=== PATIENT | male | born 1980 | race Two or more races ===

== ENCOUNTER 2020-07-30 14:21 | Inpatient (IN) | payer MEDICAID, OTHER ==
[~2020-07-30] VITALS: Ht 180.3 cm; Wt 138.0 kg
[2020-07-30] MEDS ORDERED: CHOLECALCIFEROL (VITD3) 2,000 UNIT CAP/TAB PO ONE (14:45)
[2020-07-30] MEDS ORDERED: ZINC SULFATE 220mg CAP or TAB PO ONE (14:45)
[2020-07-30] MEDS ORDERED: AZITHROMYCIN 500MG/ 250ML 250 ML IV ONE (14:45)
[2020-07-30] MEDS ORDERED: ASCORBIC ACID 500 MG TAB PO ONE (14:45)
[2020-07-30] MEDS ORDERED: REMDESIVIR PER PHARMACY 0 ML IV SCH (14:45)
[2020-07-30] MEDS ORDERED: methylPREDNISolone SOD SUCC 125 MG/2 ML VL IV ONE (14:45)
[2020-07-30 15:22] LABS: Basophils # (auto) 0 10 ^3/uL (0-0.2); Eosinophils # (auto) 0.1 10 ^3/uL (0-0.8); Lymphocytes # (auto) 0.8 10 ^3/uL (0.4-5.4); Neutrophils # (auto) 7.7 10 ^3/uL (1.6-8.6)
[2020-07-30 15:23] LABS: Basophils % (auto) 0.2 % (0.0-2.0); Eosinophils % (auto) 0.8 % (0.0-7.0); Hematocrit 45.1 % (41.0-53.0); Hemoglobin 15.8 g/dL (13.5-17.5); Lymphocytes % (auto) 8.5 % (10.0-50.0); Mean Corpuscular Hemoglobin 32.7 pg (28.0-32.0); Mean Corpuscular Hgb Conc. 35.1 g/dL (32.0-36.0); Mean Corpuscular Volume 93.1 fL (80.0-100.0); Monocytes % (auto) 10.9 % (0.0-12.0); Neutrophils % (auto) 79.6 % (37.0-80.0); Nucleated Red Blood Cells % 0.1 %; Platelet Count (auto) 594 10^3/uL (140-450); Red Blood Cells 4.84 10^6/uL (4.5-5.90); Red Cell Distribution Width 14.6 % (11.8-14.3); White Blood Cell 9.6 10^3/uL (4.4-10.8)
[2020-07-30 15:33] LABS: Albumin 2.9 g/dL (3.4-5.0); Calcium 9.5 mg/dL (8.5-10.1); Magnesium 2.7 mg/dL (1.6-2.6); Potassium 3.5 mmol/L (3.5-5.1)
[2020-07-30 15:43] LABS: BUN/Creatinine Ratio 10.8; Bilirubin, Total 0.8 mg/dL (0.2-1.0); CRP High Sensitivity 14.3 mg/dL (< 0.3); Total Protein 8.9 g/dL (6.4-8.2)
[2020-07-30 15:45] LABS: Lactic Acid w/Reflex 2.8 mmol/L (0.4-2.0)
[2020-07-30] MEDS ORDERED: MORPHINE SULF INJ 2 MG/ML SYRINGE 1ML IV PRN (16:30)
[2020-07-30] MEDS ORDERED: NITROGLYCERIN 0.4 MG SL TAB SL PRN (16:30)
[2020-07-30 21:19] VITALS: BP 135/97
[2020-07-30] MEDS: ALBUTEROL SULF HFA 90MCG INH 200DOSE IN SCH (22:00)
[2020-07-30 22:41] VITALS: BP 143/92
[2020-07-31 05:00] VITALS: BP 145/89
[2020-07-31] MEDS: ALBUTEROL SULF HFA 90MCG INH 200DOSE IN SCH ×3 (06:00→18:54)
[2020-07-31 06:10] LABS: Hematocrit 43.4 % (41.0-53.0); Hemoglobin 15.2 g/dL (13.5-17.5); Mean Corpuscular Hemoglobin 32.6 pg (28.0-32.0); Mean Corpuscular Volume 93.3 fL (80.0-100.0); Platelet Count (auto) 645 10^3/uL (140-450); Red Blood Cells 4.65 10^6/uL (4.5-5.90); Red Cell Distribution Width 14.8 % (11.8-14.3); White Blood Cell 9.2 10^3/uL (4.4-10.8)
[2020-07-31 06:30] LABS: Albumin 2.6 g/dL (3.4-5.0); Calcium 9.4 mg/dL (8.5-10.1); Potassium 4.2 mmol/L (3.5-5.1)
[2020-07-31 06:33] LABS: BUN/Creatinine Ratio 16.5; Basophils % (manual) 0 (0.0-2.0); Bilirubin, Total 0.7 mg/dL (0.2-1.0); Blast Cells 0; Eosinophils % (manual) 0 (0-7); Promyelocytes % 0; Reactive Lymphocytes 0; Total Protein 8.5 g/dL (6.4-8.2)
[2020-07-31 07:46] LABS: Band Neutrophils % (manual) 2; Lymphocytes % (manual) 13 (10.0-50.0); Metamyelocytes % 1; Monocytes % (manual) 8 (0-12); Myelocytes % 2
[2020-07-31] MEDS: ACETAMINOPHEN 325 MG TAB PO PRN (08:15)
[2020-07-31] MEDS: cefTRIAXone 1GM/50ML D5W 50 ML IV SCH ×2 (08:15→10:00)
[2020-07-31 08:53] VITALS: BP 144/99
[2020-07-31] MEDS: ENOXAPARIN SOD 40 MG/0.4 ML SYRINGE SC SCH (10:04)
[2020-07-31] MEDS: ASCORBIC ACID 1,000 MG TAB PO SCH (10:04)
[2020-07-31] MEDS: PANTOPRAZOLE 40 MG TAB PO SCH (10:04)
[2020-07-31] MEDS: ZINC SULFATE 220mg CAP or TAB PO SCH (10:04)
[2020-07-31] MEDS: DexAMETHasone SOD PHOS 10MG/1ML VIAL INJ IV SCH (10:04)
[2020-07-31] MEDS: CHOLECALCIFEROL (VITD3) 2,000 UNIT CAP/TAB PO SCH (10:04)
[2020-07-31] MEDS: AZITHROMYCIN 500MG/ 250ML 250 ML IV SCH (10:05)
[2020-07-31 12:53] VITALS: BP 113/72
[2020-07-31] MEDS ORDERED: REMDESIVIR 200 MG in NS 210ml LOADING DOSE ADULT IV ONE (15:00)
[2020-07-31 16:51] VITALS: BP 135/82
[2020-07-31 22:00] VITALS: BP 138/75
[2020-08-01 05:00] VITALS: BP 142/88
[2020-08-01] MEDS: ACETAMINOPHEN 325 MG TAB PO PRN ×2 (05:20→20:48)
[2020-08-01] MEDS: ALBUTEROL SULF HFA 90MCG INH 200DOSE IN SCH ×2 (07:03→18:53)
[2020-08-01 07:49] LABS: Potassium 3.8 mmol/L (3.5-5.1)
[2020-08-01 07:55] LABS: Albumin 2.6 g/dL (3.4-5.0); BUN/Creatinine Ratio 23.2; Calcium 9.1 mg/dL (8.5-10.1)
[2020-08-01 07:57] LABS: Bilirubin, Total 0.5 mg/dL (0.2-1.0); Total Protein 7.7 g/dL (6.4-8.2)
[2020-08-01 09:28] VITALS: BP 139/90
[2020-08-01] MEDS: PANTOPRAZOLE 40 MG TAB PO SCH (10:04)
[2020-08-01] MEDS: cefTRIAXone 1GM/50ML D5W 50 ML IV SCH (10:04)
[2020-08-01] MEDS: CHOLECALCIFEROL (VITD3) 2,000 UNIT CAP/TAB PO SCH (10:04)
[2020-08-01] MEDS: ENOXAPARIN SOD 40 MG/0.4 ML SYRINGE SC SCH (10:04)
[2020-08-01] MEDS: ASCORBIC ACID 1,000 MG TAB PO SCH (10:04)
[2020-08-01] MEDS: ZINC SULFATE 220mg CAP or TAB PO SCH (10:04)
[2020-08-01] MEDS: DexAMETHasone SOD PHOS 10MG/1ML VIAL INJ IV SCH (10:04)
[2020-08-01] MEDS: AZITHROMYCIN 500MG/ 250ML 250 ML IV SCH (11:42)
[2020-08-01 11:56] LABS: Hematocrit 42.5 % (41.0-53.0); Hemoglobin 14.2 g/dL (13.5-17.5); Mean Corpuscular Hemoglobin 31.7 pg (28.0-32.0); Mean Corpuscular Hgb Conc. 33.3 g/dL (32.0-36.0); Mean Corpuscular Volume 95.4 fL (80.0-100.0); Red Blood Cells 4.46 10^6/uL (4.5-5.90); Red Cell Distribution Width 15.5 % (11.8-14.3); White Blood Cell 13.4 10^3/uL (4.4-10.8)
[2020-08-01 12:01] LABS: Platelet Count (auto) 770 10^3/uL (140-450)
[2020-08-01 12:02] LABS: Basophils % (manual) 0 (0.0-2.0); Blast Cells 0; Eosinophils % (manual) 0 (0-7); Metamyelocytes % 0; Promyelocytes % 0; Reactive Lymphocytes 0
[2020-08-01 12:25] LABS: Band Neutrophils % (manual) 3; Lymphocytes % (manual) 7 (10.0-50.0); Monocytes % (manual) 10 (0-12); Myelocytes % 1
[2020-08-01 13:00] VITALS: BP 143/97
[2020-08-01] MEDS: REMDESIVIR 100mg 100 MG in SODIUM CHL 0.9% 230 ML IV SCH (15:31)
[2020-08-01 16:53] VITALS: BP 124/85
[2020-08-01 20:00] VITALS: BP 125/75
[2020-08-01 22:00] VITALS: BP 125/75
[2020-08-02] VITALS (7 sets, daily range): BP systolic 103–143; BP diastolic 60–90
[2020-08-02] MEDS: ACETAMINOPHEN 325 MG TAB PO PRN ×3 (05:06→17:50)
[2020-08-02 06:12] LABS: Basophils # (auto) 0 10 ^3/uL (0-0.2); Basophils % (auto) 0.1 % (0.0-2.0); Eosinophils # (auto) 0 10 ^3/uL (0-0.8); Eosinophils % (auto) 0.2 % (0.0-7.0); Hematocrit 41.3 % (41.0-53.0); Hemoglobin 14.5 g/dL (13.5-17.5); Lymphocytes # (auto) 1.2 10 ^3/uL (0.4-5.4); Lymphocytes % (auto) 9.3 % (10.0-50.0); Mean Corpuscular Volume 94.2 fL (80.0-100.0); Monocytes # (auto) 1.2 10 ^3/uL (0-1.3); Monocytes % (auto) 9.3 % (0.0-12.0); Neutrophils # (auto) 10.1 10 ^3/uL (1.6-8.6); Neutrophils % (auto) 81.1 % (37.0-80.0); Nucleated Red Blood Cells % 0.1 %; Platelet Count (auto) 744 10^3/uL (140-450); Red Blood Cells 4.38 10^6/uL (4.5-5.90); Red Cell Distribution Width 14.8 % (11.8-14.3); White Blood Cell 12.5 10^3/uL (4.4-10.8)
[2020-08-02] MEDS: ALBUTEROL SULF HFA 90MCG INH 200DOSE IN SCH ×3 (06:16→18:57)
[2020-08-02 06:29] LABS: Albumin 2.7 g/dL (3.4-5.0); Calcium 9.1 mg/dL (8.5-10.1); Potassium 3.8 mmol/L (3.5-5.1)
[2020-08-02 06:32] LABS: BUN/Creatinine Ratio 22.1; Bilirubin, Total 0.6 mg/dL (0.2-1.0); Total Protein 7.6 g/dL (6.4-8.2)
[2020-08-02] MEDS: ENOXAPARIN SOD 40 MG/0.4 ML SYRINGE SC SCH (10:42)
[2020-08-02] MEDS: DexAMETHasone SOD PHOS 10MG/1ML VIAL INJ IV SCH (10:42)
[2020-08-02] MEDS: cefTRIAXone 1GM/50ML D5W 50 ML IV SCH (10:42)
[2020-08-02] MEDS: PANTOPRAZOLE 40 MG TAB PO SCH (10:43)
[2020-08-02] MEDS: ASCORBIC ACID 1,000 MG TAB PO SCH (10:43)
[2020-08-02] MEDS: ZINC SULFATE 220mg CAP or TAB PO SCH (10:43)
[2020-08-02] MEDS: CHOLECALCIFEROL (VITD3) 2,000 UNIT CAP/TAB PO SCH (10:44)
[2020-08-02] MEDS: AZITHROMYCIN 500MG/ 250ML 250 ML IV SCH (11:41)
[2020-08-02] MEDS: REMDESIVIR 100mg 100 MG in SODIUM CHL 0.9% 230 ML IV SCH (15:07)
[2020-08-03 04:53] VITALS: BP 146/89
[2020-08-03 06:33] LABS: Potassium 4.5 mmol/L (3.5-5.1)
[2020-08-03] MEDS: ALBUTEROL SULF HFA 90MCG INH 200DOSE IN SCH ×2 (06:37→14:13)
[2020-08-03 06:38] LABS: Albumin 2.6 g/dL (3.4-5.0); BUN/Creatinine Ratio 21.3; Bilirubin, Total 0.4 mg/dL (0.2-1.0); Calcium 9.1 mg/dL (8.5-10.1); Total Protein 7.1 g/dL (6.4-8.2)
[2020-08-03 06:47] LABS: Platelet Count (auto) 721 10^3/uL (140-450); Red Blood Cells 4.54 10^6/uL (4.5-5.90); White Blood Cell 9.9 10^3/uL (4.4-10.8)
[2020-08-03 06:49] LABS: Hematocrit 42.6 % (41.0-53.0); Hemoglobin 14.7 g/dL (13.5-17.5); Mean Corpuscular Hemoglobin 32.4 pg (28.0-32.0); Mean Corpuscular Hgb Conc. 34.6 g/dL (32.0-36.0); Mean Corpuscular Volume 93.8 fL (80.0-100.0); Red Cell Distribution Width 15.1 % (11.8-14.3)
[2020-08-03 06:52] LABS: Basophils % (manual) 0 (0.0-2.0); Blast Cells 0; Eosinophils % (manual) 0 (0-7); Metamyelocytes % 0; Promyelocytes % 0; Reactive Lymphocytes 0
[2020-08-03] MEDS: ACETAMINOPHEN 325 MG TAB PO PRN ×2 (07:05→15:53)
[2020-08-03 08:13] LABS: Band Neutrophils % (manual) 4; Lymphocytes % (manual) 16 (10.0-50.0); Monocytes % (manual) 8 (0-12); Myelocytes % 1
[2020-08-03] MEDS: DexAMETHasone SOD PHOS 10MG/1ML VIAL INJ IV SCH (09:45)
[2020-08-03] MEDS: cefTRIAXone 1GM/50ML D5W 50 ML IV SCH (09:45)
[2020-08-03] MEDS: ENOXAPARIN SOD 40 MG/0.4 ML SYRINGE SC SCH (09:45)
[2020-08-03] MEDS: CHOLECALCIFEROL (VITD3) 2,000 UNIT CAP/TAB PO SCH (09:54)
[2020-08-03] MEDS: ZINC SULFATE 220mg CAP or TAB PO SCH (09:54)
[2020-08-03] MEDS: ASCORBIC ACID 1,000 MG TAB PO SCH (09:54)
[2020-08-03] MEDS: PANTOPRAZOLE 40 MG TAB PO SCH (09:54)
[2020-08-03 09:57] VITALS: BP 133/80
[2020-08-03] MEDS: AZITHROMYCIN 500MG/ 250ML 250 ML IV SCH (10:50)
[2020-08-03 12:00] VITALS: BP 131/98
[2020-08-03] MEDS: REMDESIVIR 100mg 100 MG in SODIUM CHL 0.9% 230 ML IV SCH (15:00)
[2020-08-03] MEDS ORDERED: DEXA6TAB6 PO (15:50)
[2020-08-03] MEDS ORDERED: ASCO10003 PO (15:50)
[2020-08-03] MEDS ORDERED: CHOL1CAP47 PO (15:50)
[2020-08-03] MEDS ORDERED: AZIT250T9 PO (15:50)
[2020-08-03] MEDS ORDERED: ZINCCAP PO (15:50)
[2020-08-03] MEDS ORDERED: ALBUAER3 IN (15:50)
[2020-08-03 17:05] VITALS: BP 134/87
[2020-08-03 17:39] VITALS: BP 134/87
== END 2020-08-03 18:50 | disposition home health service (06) | DRG 137 ==
LOC: ER 14:21 → TELE 16:22 → TELE-EAST 21:26
PROVIDERS: ADMIT Internal Medicine; ATTEND Internal Medicine
PROC: XW033E5 Introduction of Remdesivir Anti-infective into Peripheral Vein, Percutaneous Approach, New Technology Group 5 (ICD-10-PCS; principal; 2020-07-31)
DX: U07.1 COVID-19 (principal); J12.82 Pneumonia due to coronavirus disease 2019; J96.01 Acute respiratory failure with hypoxia; E66.01 Morbid (severe) obesity due to excess calories; Z68.41 Body mass index [BMI] 40.0-44.9, adult; J98.11 Atelectasis; D47.3 Essential (hemorrhagic) thrombocythemia
CPT/HCPCS: 36415; 36600; 71045; 80053; 82728; 82805; 83605; 83735; 83880; 85007; 85025; 85027; 85379; 86141; 87040; 87426; 93005; 94640; 96365; 96375; G0378; J0696; J1100

== ENCOUNTER 2022-09-13 12:27 | Inpatient (IN) | payer MEDICAID ==
[~2022-09-13] VITALS: Ht 177.8 cm; Wt 134.5 kg
[~2022-09-13 12:27] MED LIST: ALBUAER3 IN; ASCO10003 PO; AZIT250T9 PO; CHOL1CAP47 PO; DEXA6TAB6 PO; ZINCCAP PO
[2022-09-13 13:00] LABS: Urine Bacteria NONE SEEN /hpf (None Seen); Urine Blood Negative /uL (Negative); Urine Mucus FEW (None Seen); Urine Specific Gravity 1.022 (1.001-1.035); Urine WBC 1 /hpf (0 - 3)
[2022-09-13 13:29] LABS: Basophils # (auto) 0.1 10 ^3/uL (0-0.2); Basophils % (auto) 0.8 % (0.0-2.0); Eosinophils # (auto) 0.2 10 ^3/uL (0-0.8); Eosinophils % (auto) 3.6 % (0.0-7.0); Hematocrit 45.7 % (41.0-53.0); Hemoglobin 15.5 g/dL (13.5-17.5); Lymphocytes # (auto) 1.4 10 ^3/uL (0.4-5.4); Lymphocytes % (auto) 21.2 % (10.0-50.0); Mean Corpuscular Hemoglobin 31.5 pg (28.0-32.0); Mean Corpuscular Hgb Conc. 33.8 g/dL (32.0-36.0); Monocytes # (auto) 0.8 10 ^3/uL (0-1.3); Monocytes % (auto) 12.3 % (0.0-12.0); Neutrophils # (auto) 4.2 10 ^3/uL (1.6-8.6); Neutrophils % (auto) 62.1 % (37.0-80.0); Nucleated Red Blood Cells % 0.1 %; Red Blood Cells 4.92 10^6/uL (4.5-5.90); Red Cell Distribution Width 15.4 % (11.8-14.3); White Blood Cell 6.7 10^3/uL (4.4-10.8)
[2022-09-13 13:44] LABS: Cannabinoid Screen, Urine NEGATIVE (NEGATIVE); Opiate Scree,Urine NEGATIVE (NEGATIVE)
[2022-09-13 13:46] LABS: Albumin 3.4 g/dL (3.4-5.0); BUN/Creatinine Ratio 12.2 (10.0-20.0); Calcium 9.3 mg/dL (8.5-10.1); Magnesium 1.9 mg/dL (1.6-2.6); Potassium 4.9 mmol/L (3.5-5.1)
[2022-09-13 13:49] LABS: Bilirubin, Total 0.3 mg/dL (0.2-1.0); Total Protein 7.3 g/dL (6.4-8.2)
[2022-09-13 13:51] LABS: Amphetamine Screen, Urine NEGATIVE (NEGATIVE); Barbiturate Scree,Urine NEGATIVE (NEGATIVE); Benzodiazephine Screen, Urine NEGATIVE (NEGATIVE); Cocaine Screen, Urine NEGATIVE (NEGATIVE); Phencyclidine Screen, Urine NEGATIVE (NEGATIVE)
[2022-09-13] MEDS ORDERED: ASPirin 325 MG TAB PO ONE (16:00)
[2022-09-13] MEDS ORDERED: NITROGLYCERIN 0.4 MG SL TAB SL ONE (16:00)
[2022-09-13] MEDS ORDERED: THIAMINE HCL 100 MG TAB PO ONE (16:00)
[2022-09-13] MEDS ORDERED: SODIUM CHLORIDE 0.9% 1,000 ML IV ONE (16:00)
[2022-09-13] MEDS ORDERED: ACETAMINOPHEN 325 MG TAB PO PRN (21:45)
[2022-09-13] MEDS ORDERED: DOCUSATE SOD 100 MG CAP PO PRN (21:45)
[2022-09-13] MEDS: SODIUM CHLORIDE 0.9% 1,000 ML IV SCH (21:45)
[2022-09-13] MEDS ORDERED: HYDROcodone-ACET 5/325MG TAB PO PRN (21:45)
[2022-09-13] MEDS ORDERED: ONDANSETRON HCL 4 MG/2 ML VIAL IV PRN (21:45)
[2022-09-13] MEDS ORDERED: ALBUTEROL SULF 2.5 MG/0.5ML(0.5%) NEB SOLN NEB PRN (21:45)
[2022-09-13] MEDS: ATORVASTATIN 20 MG TAB PO SCH (22:23)
[2022-09-13] MEDS ORDERED: MORPHINE SULFATE INJ 2 MG/ml SYRG IV PRN (22:30)
[2022-09-13] MEDS ORDERED: NITROGLYCERIN 0.4 MG SL TAB SL PRN (22:30)
[2022-09-14 00:57] VITALS: BP 146/87
[2022-09-14 05:50] LABS: Basophils # (auto) 0.1 10 ^3/uL (0-0.2); Basophils % (auto) 0.7 % (0.0-2.0); Eosinophils # (auto) 0.2 10 ^3/uL (0-0.8); Eosinophils % (auto) 2.3 % (0.0-7.0); Hematocrit 41.3 % (41.0-53.0); Hemoglobin 14.4 g/dL (13.5-17.5); Lymphocytes % (auto) 21.9 % (10.0-50.0); Mean Corpuscular Hemoglobin 32.1 pg (28.0-32.0); Mean Corpuscular Hgb Conc. 34.9 g/dL (32.0-36.0); Monocytes % (auto) 10.6 % (0.0-12.0); Neutrophils # (auto) 5.9 10 ^3/uL (1.6-8.6); Neutrophils % (auto) 64.5 % (37.0-80.0); Nucleated Red Blood Cells % 0.1 %; Red Blood Cells 4.49 10^6/uL (4.5-5.90); Red Cell Distribution Width 15.2 % (11.8-14.3); White Blood Cell 9.2 10^3/uL (4.4-10.8)
[2022-09-14 06:06] LABS: Albumin 3.2 g/dL (3.4-5.0); Calcium 8.3 mg/dL (8.5-10.1); Potassium 4.1 mmol/L (3.5-5.1)
[2022-09-14 06:10] LABS: BUN/Creatinine Ratio 13.5 (10.0-20.0); Bilirubin, Total 0.6 mg/dL (0.2-1.0); Total Protein 6.3 g/dL (6.4-8.2)
[2022-09-14] MEDS: ASPirin 81 mg TAB PO SCH (09:22)
[2022-09-14] MEDS: FAMOTIDINE (10MG/ML) 2ML VL IV SCH (09:23)
[2022-09-14] MEDS: SODIUM CHLORIDE 0.9% 1,000 ML IV SCH (16:49)
[2022-09-14] MEDS ORDERED: BUPR300T28 PO (16:50)
[2022-09-14 17:12] VITALS: BP 150/88
[2022-09-14] MEDS: ATORVASTATIN 20 MG TAB PO SCH (21:38)
[2022-09-14 22:00] VITALS: BP 144/91
[2022-09-15 05:00] VITALS: BP 141/79
[2022-09-15] MEDS: SODIUM CHLORIDE 0.9% 1,000 ML IV SCH (06:39)
[2022-09-15 09:00] VITALS: BP 139/82
[2022-09-15] MEDS: FAMOTIDINE (10MG/ML) 2ML VL IV SCH (10:20)
[2022-09-15] MEDS: ASPirin 81 mg TAB PO SCH (10:20)
[2022-09-15 13:00] VITALS: BP 142/87
[2022-09-15 17:12] VITALS: BP 145/86
== END 2022-09-15 19:30 | disposition home or self-care (01) | DRG 204 ==
LOC: ER 12:27 → TELE 22:17 → TELE-WESTW 09-14 16:20
PROVIDERS: ADMIT Nurse Practitioner Family; ATTEND Internal Medicine
DX: R55 Syncope and collapse (principal); F10.20 Alcohol dependence, uncomplicated; I10 Essential (primary) hypertension; F32.A Depression, unspecified; F41.9 Anxiety disorder, unspecified; Y90.9 Presence of alcohol in blood, level not specified; R07.89 Other chest pain
CPT/HCPCS: 36415; 71045; 80053; 80307; 81001; 83605; 83735; 84484; 85025; 85379; 93005; 96365; G0378; J3490

== ENCOUNTER 2024-01-07 01:35 | Emergency (ER) | payer SELFPAY ==
[~2024-01-07] VITALS: Ht 177.8 cm; Wt 109.0 kg
[~2024-01-07 01:35] MED LIST changes: -ALBUAER3 IN; -AZIT250T9 PO; +BUPR-581 PO; -DEXA6TAB6 PO
[2024-01-07 02:05] LABS: Basophils # (auto) 0 10 ^3/uL (0-0.2); Basophils % (auto) 0.5 % (0.0-2.0); Eosinophils # (auto) 0.1 10 ^3/uL (0-0.8); Eosinophils % (auto) 1.9 % (0.0-7.0); Hematocrit 43.4 % (41.0-53.0); Hemoglobin 14.9 g/dL (13.5-17.5); Lymphocytes # (auto) 1.4 10 ^3/uL (0.4-5.4); Mean Corpuscular Hemoglobin 31.6 pg (28.0-32.0); Mean Corpuscular Hgb Conc. 34.2 g/dL (32.0-36.0); Mean Corpuscular Volume 92.3 fL (80.0-100.0); Monocytes # (auto) 0.7 10 ^3/uL (0-1.3); Monocytes % (auto) 10.7 % (0.0-12.0); Neutrophils # (auto) 4.3 10 ^3/uL (1.6-8.6); Neutrophils % (auto) 64.9 % (37.0-80.0); Nucleated Red Blood Cells % 0.1 %; Platelet Count (auto) 80 10^3/uL (140-450); Red Cell Distribution Width 13.2 % (11.8-14.3); White Blood Cell 6.6 10^3/uL (4.4-10.8)
[2024-01-07 02:25] LABS: Alanine Aminotransferase 37 U/L (7-40); Alkaline Phosphatase 81 U/L (46-116); Anion Gap 5 (5-15); Aspartate Aminotransferase 36 U/L (13-40); BUN/Creatinine Ratio 18.3 (10.0-20.0); Blood Urea Nitrogen 19 mg/dL (9-23); Calcium 9.2 mg/dL (8.7-10.4); Carbon Dioxide 27 mmol/L (20-30); Chloride 104 mmol/L (98-107); Glucose 112 mg/dL (74-106); Potassium 4.2 mmol/L (3.5-5.1); Sodium 136 mmol/L (136-145)
[2024-01-07 02:26] LABS: Albumin 4.1 g/dL (3.2-4.8); Bilirubin, Total 0.8 mg/dL (0.2-1.0); Total Protein 7.2 g/dL (5.7-8.2)
[2024-01-07 02:51] LABS: Urine Bacteria None Seen /hpf (None Seen); Urine WBC None Seen /hpf (0 - 3)
[2024-01-07 02:59] LABS: Urine Blood 1+ /uL (Negative); Urine Clarity Clear (Clear); Urine Color Colorless (Yellow); Urine Protein, UAD Negative (Negative); Urine Specific Gravity 1.003 (1.001-1.035); Urine Urobilinogen Normal (Negative)
[2024-01-07 03:10] LABS: Platelet Estimate Decreased
[2024-01-07 03:11] LABS: Large Platelets FEW
[2024-01-07 05:45] VITALS: BP 144/88; PULSE 88; RESP 18; TEMP 98.1
[2024-01-07] MEDS: ASPirin 81 mg TAB PO ONE (05:50)
[2024-01-07 05:52] VITALS: O2SAT 98
[2024-01-07] MEDS: ASPirin-EC 81 mg tab PO ONE (05:54)
[2024-01-08] MEDS ORDERED: PANT40T PO (14:25)
== END 2024-01-07 05:50 | disposition home or self-care (01) ==
LOC: ER 01:35
DX: R07.89 Other chest pain (principal); F10.10 Alcohol abuse, uncomplicated; F12.90 Cannabis use, unspecified, uncomplicated; Z79.899 Other long term (current) drug therapy
CPT/HCPCS: 36415; 71045; 80053; 81001; 84484; 85025; 93005

== ENCOUNTER 2024-01-07 07:48 | Inpatient (IN) | payer MEDICAID ==
[~2024-01-07] VITALS: Ht 177.8 cm; Wt 109.0 kg
[2024-01-07 08:35] LABS: Basophils # (auto) 0 10 ^3/uL (0-0.2); Basophils % (auto) 0.5 % (0.0-2.0); Eosinophils # (auto) 0.1 10 ^3/uL (0-0.8); Eosinophils % (auto) 1.1 % (0.0-7.0); Hematocrit 42.3 % (41.0-53.0); Hemoglobin 14.6 g/dL (13.5-17.5); Lymphocytes # (auto) 1.5 10 ^3/uL (0.4-5.4); Lymphocytes % (auto) 20.7 % (10.0-50.0); Mean Corpuscular Hgb Conc. 34.5 g/dL (32.0-36.0); Mean Corpuscular Volume 92.6 fL (80.0-100.0); Monocytes # (auto) 0.7 10 ^3/uL (0-1.3); Monocytes % (auto) 9.8 % (0.0-12.0); Neutrophils % (auto) 67.9 % (37.0-80.0); Nucleated Red Blood Cells % 0.1 %; Platelet Count (auto) 85 10^3/uL (140-450); Red Blood Cells 4.56 10^6/uL (4.5-5.90); Red Cell Distribution Width 13.4 % (11.8-14.3); White Blood Cell 7.3 10^3/uL (4.4-10.8)
[2024-01-07 08:41] LABS: Alanine Aminotransferase 36 U/L (7-40); Albumin 4.3 g/dL (3.2-4.8); Alkaline Phosphatase 68 U/L (46-116); Anion Gap 4 (5-15); Aspartate Aminotransferase 32 U/L (13-40); BUN/Creatinine Ratio 16.9 (10.0-20.0); Blood Urea Nitrogen 15 mg/dL (9-23); Calcium 9.6 mg/dL (8.7-10.4); Carbon Dioxide 27 mmol/L (20-30); Chloride 104 mmol/L (98-107); Glucose 99 mg/dL (74-106); Potassium 3.9 mmol/L (3.5-5.1); Sodium 135 mmol/L (136-145)
[2024-01-07 08:42] LABS: Bilirubin, Total 1.1 mg/dL (0.2-1.0); Total Protein 7.2 g/dL (5.7-8.2)
[2024-01-07 08:44] LABS: INR 1.03 (0.9-1.15); Partial Thromboplastin Time 28.4 SEC (24.5-34.5); Prothrombin Time 10.9 sec (9.3-11.8)
[2024-01-07] MEDS: SODIUM CHLORIDE 0.9% 1,000 ML IV ONE (09:11)
[2024-01-07] MEDS: ONDANSETRON HCL 4 MG/2 ML VIAL IV ONE (09:23)
[2024-01-07] MEDS: FAMOTIDINE (10MG/ML) 2ML VL IV ONE (09:24)
[2024-01-07] MEDS: MORPHINE SULFATE INJ 2 MG/ml SYRG IV ONE (09:25)
[2024-01-07 09:37] VITALS: PULSE 63; RESP 18; O2SAT 97
[2024-01-07 10:22] LABS: Lipase 51 U/L (12-53)
[2024-01-07 11:21] LABS: Urine Bacteria None Seen /hpf (None Seen)
[2024-01-07 11:33] LABS: Urine Blood 1+ /uL (Negative); Urine Clarity Clear (Clear); Urine Color Colorless (Yellow); Urine Protein, UAD Negative (Negative); Urine Specific Gravity 1.003 (1.001-1.035); Urine Urobilinogen Normal (Negative); Urine WBC <1 /hpf (0 - 3)
[2024-01-07] MEDS: NITROGLYCERIN 2% OINT 1GM PKG TD ONE (12:17)
[2024-01-07] MEDS ORDERED: MORPHINE SULFATE INJ 2 MG/ml SYRG IV PRN (12:45)
[2024-01-07] MEDS ORDERED: NITROGLYCERIN 0.4 MG SL TAB SL PRN (12:45)
[2024-01-07] MEDS ORDERED: DOCUSATE SOD 100 MG CAP PO PRN (12:45)
[2024-01-07] MEDS ORDERED: ACETAMINOPHEN 325 MG TAB PO PRN (12:45)
[2024-01-07] MEDS ORDERED: ONDANSETRON HCL 4 MG/2 ML VIAL IV PRN (12:45)
[2024-01-07] MEDS ORDERED: HYDROmorphone HCL 2 MG/ML VL/or syr IV PRN (12:45)
[2024-01-07] MEDS ORDERED: hydrALAZINE HCL 20 MG/ML VL IV PRN (13:00)
[2024-01-07 13:06] LABS: LDL Cholesterol 60 mg/dL (< 100); Triglycerides 127 mg/dL (< 150)
[2024-01-07 13:08] LABS: Cholesterol 138 mg/dL (< 200); HDL Cholesterol 64 mg/dL (40-59)
[2024-01-07 13:18] LABS: Amphetamine Screen, Urine Neg (NEGATIVE); Barbiturate Scree,Urine Neg (NEGATIVE); Benzodiazephine Screen, Urine Neg (NEGATIVE); Cannabinoid Screen, Urine Neg (NEGATIVE); Cocaine Screen, Urine Neg (NEGATIVE); Opiate Scree,Urine Neg (NEGATIVE); Phencyclidine Screen, Urine Neg (NEGATIVE)
[2024-01-07] MEDS: HYDROcodone-ACET 5/325MG TAB PO PRN (13:21)
[2024-01-07 13:25] LABS: Free T4 (Free Thyroxine) 1.25 ng/dL (0.89-1.76)
[2024-01-07] MEDS: SODIUM CHLOR 0.9% PF (SALINE LOCK) 10ML VIAL/SYR IV SCH (13:35)
[2024-01-07 13:40] LABS: Folate (Folic Acid) 25.85 ng/mL (>5.38)
[2024-01-07] MEDS: PANTOPRAZOLE 40 MG TAB PO ONE (16:26)
[2024-01-07 16:45] LABS: Blood Alcohol < 3.0 mg/dL (<10); Magnesium 2.2 mg/dL (1.6-2.6)
[2024-01-07 17:22] VITALS: BP 112/64; PULSE 70; RESP 18; TEMP 98.5; O2SAT 97
[2024-01-07 17:32] VITALS: BP 113/68; PULSE 71; RESP 20; TEMP 97.9; O2SAT 95
[2024-01-07] MEDS: FOLIC ACID 1 MG, MULTIPLE VITAMIN 10 ML, MAGNESIUM SULF SDV 50% 8 MEQ, THIAMINE INJ 100... INJ SCH (18:24)
[2024-01-07 20:00] VITALS: PULSE 68; PULSE 71; RESP 18; O2SAT 98
[2024-01-07 21:00] VITALS: BP 129/80; PULSE 71; RESP 18; TEMP 98.7; O2SAT 98
[2024-01-08] VITALS (7 sets, daily range): BP systolic 119–153; BP diastolic 68–95; PULSE 63–74; RESP 18–20; TEMP 36.8; O2SAT 97–99
[2024-01-08 05:26] LABS: Basophils # (auto) 0 10 ^3/uL (0-0.2); Basophils % (auto) 0.5 % (0.0-2.0); Eosinophils # (auto) 0.1 10 ^3/uL (0-0.8); Eosinophils % (auto) 2.1 % (0.0-7.0); Hematocrit 39.7 % (41.0-53.0); Hemoglobin 13.8 g/dL (13.5-17.5); Lymphocytes # (auto) 1.3 10 ^3/uL (0.4-5.4); Lymphocytes % (auto) 23.4 % (10.0-50.0); Mean Corpuscular Hemoglobin 31.8 pg (28.0-32.0); Mean Corpuscular Hgb Conc. 34.8 g/dL (32.0-36.0); Mean Corpuscular Volume 91.4 fL (80.0-100.0); Monocytes # (auto) 0.7 10 ^3/uL (0-1.3); Monocytes % (auto) 12.7 % (0.0-12.0); Neutrophils # (auto) 3.4 10 ^3/uL (1.6-8.6); Neutrophils % (auto) 61.3 % (37.0-80.0); Nucleated Red Blood Cells % 0.1 %; Platelet Count (auto) 84 10^3/uL (140-450); Red Blood Cells 4.34 10^6/uL (4.5-5.90); Red Cell Distribution Width 13.3 % (11.8-14.3); White Blood Cell 5.6 10^3/uL (4.4-10.8)
[2024-01-08] MEDS: PANTOPRAZOLE 40 MG TAB PO SCH (05:32)
[2024-01-08 05:47] LABS: Alanine Aminotransferase 34 U/L (7-40); Albumin 3.8 g/dL (3.2-4.8); Alkaline Phosphatase 50 U/L (46-116); Anion Gap 4 (5-15); Aspartate Aminotransferase 28 U/L (13-40); BUN/Creatinine Ratio 11.8 (10.0-20.0); Bilirubin, Total 0.8 mg/dL (0.2-1.0); Blood Urea Nitrogen 10 mg/dL (9-23); Carbon Dioxide 28 mmol/L (20-30); Chloride 106 mmol/L (98-107); Glucose 109 mg/dL (74-106); Potassium 4.4 mmol/L (3.5-5.1); Sodium 138 mmol/L (136-145); Total Protein 6.5 g/dL (5.7-8.2)
[2024-01-08] MEDS: ENOXAPARIN SOD 40 MG/0.4 ML SYRINGE SC SCH (09:34)
[2024-01-08] MEDS: BUPROPION HCL PO SCH (09:39)
[2024-01-08] MEDS: ASCORBIC ACID 1000 MG PO SCH (09:39)
[2024-01-08] MEDS: CHOLECALCIFEROL (VITD3) 1,000UNIT=25mCg TAB PO SCH (09:40)
[2024-01-08] MEDS: ZINC SULFATE 220mg CAP or TAB PO SCH (09:40)
[2024-01-08] MEDS ORDERED: ZINC SULFATE 220 MG PO SCH (10:00)
[2024-01-08] MEDS ORDERED: PATIENTS OWN MEDICATION (Cholecalciferol (Vitamin D3 Super Strength) 4,000 UNIT) PO SCH (10:00)
[2024-01-08] MEDS ORDERED: PANT40T PO (14:25)
== END 2024-01-08 17:17 | disposition home or self-care (01) | DRG 241 ==
LOC: ER 07:48 → TELE 12:47 → TELE-WESTW 17:21
PROVIDERS: ADMIT Internal Medicine; ATTEND Internal Medicine
DX: K29.70 Gastritis, unspecified, without bleeding (principal); D69.6 Thrombocytopenia, unspecified; K76.0 Fatty (change of) liver, not elsewhere classified; E66.9 Obesity, unspecified; I16.0 Hypertensive urgency; F41.9 Anxiety disorder, unspecified; K21.9 Gastro-esophageal reflux disease without esophagitis; F10.229 Alcohol dependence with intoxication, unspecified; Z71.41 Alcohol abuse counseling and surveillance of alcoholic; Z68.34 Body mass index [BMI] 34.0-34.9, adult; Y90.9 Presence of alcohol in blood, level not specified
CPT/HCPCS: 36415; 71045; 76705; 80053; 80061; 80307; 80320; 81001; 82607; 82746; 83036; 83690; 83735; 83880; 84439; 84443; 84484; 85025; 85379; 85610; 85730; 93306; 96361; 96374; 96375; G0378; J2405

== ENCOUNTER 2025-03-23 21:33 | Inpatient (IN) | payer MEDICAID, OTHER ==
[~2025-03-23] VITALS: Ht 177.8 cm; Wt 103.3 kg
[~2025-03-23 21:33] MED LIST changes: +PANT40T PO
--- NOTE | 2025-03-23 22:28 | ED.PDOC ---
Psychiatric HPI Comments MERE: HPI: Poor Historian. 45-year-old male accompanied by his mother bedside. History obtained from both. Patient has been binge drinking for the last few months. Mother went to check on him today the house was full of alcohol. As alcoholic intake was few hours ago. Denies any other associated symptoms. Patient has history of depression and anxiety which led to him to binge drink. Denies any particular triggers of his depression and anxiety. Denies any use of drugs. Past Medical History: Anxiety, depression, alcohol abuse Past Surgical History: Denies any No known drug allergies REVIEW OF SYSTEMS: CONSTITUTIONAL: Denies acute: fever, diaphoresis, chills, HEAD: Denies acute: headache, photophobia Eyes: Denies acute: Double vision, vision loss, eye pain, eye discharge. EARS: Denies acute: tinnitus, hearing loss, ear discharge, ear pain, THROAT: Denies acute: sore throat, swelling, difficulty swallowing , pain with swall owing, change in voice. NECK: Denies acute: neck pain, neck swelling, stiff neck. HEART: Denies acute : chest pain, palpitations, LUNGS: Denies acute: SOB, wheezing, cough, hemoptysis ABDOMEN: Denies acute: abdominal pain, Nausea, Vomiting, diarrhea, melena , hematemesis, hematochezia SKIN: Denies acute: rash, redness, lesions, itchiness. EXTREMITIES: Denies acute: calf pain, numbness, tingling, weakness, denies pain in extremity. Denies acute: Low back pain. Neuro: Denies acute: focal neurological deficit, motor or sensory focal neurological deficit, tremors, seizure like activity, confusion, dizziness, change in mental status, loss of bowel or bladder function, cauda equina like symptoms. : Denies acute: dysuria, hematuria, flank pain, increase in urinary frequency. PSYCH: Denies acute: hallucination, suicidal ideation, homicidal ideation. PHYSICAL EXAM: General: ---moderate-----acute distress, awake and alert. Head: normocephalic, atraumatic. No raccoon's eyes, no henriquez sign. Neck: supple, trachea is midline, no swelling. Throat: Normal phonation. Eyes:, no erythema, no purulent discharge, no proptosis, no icterus. Heart: regular tachycardia, no significant murmur appreciated. Lungs: no apparent respiratory distress, Able to speak in full sentences. No wheezing, no rhonchi, no crackles. No stridors Clear to auscultation bilaterally. Abdomen: non tender to palpation, non distended, soft, no guarding, no rebound, + bowel sounds. Neuro: Awake, Alert, oriented to name, self, situation, follows commands GCS=15. Speech is normal. Slight hand tremors. Skin: no petechia, no purpura, no cyanosis, non-pale, not jaundice. Lower extremities: --no - Pitting edema no deformity, no focal swelling, no calf TTP. Makes eye contact. moves all four extremities. Face: no apparent facial droop. Ambulating in the ED independently. ED COURSE: DISCLAIMER: This medical document was created using an electronic medical record system with voice recognition software and computerized dictation system. Although this document has been carefully reviewed, there might still be some phonetic and typographical errors. Occasional wrong-word or "sound-alike" substitutions may have occurred due to the inherent limitations of voice recognition software. These areas are purely typographical due to imperfections of the software programs and do not reflect any compromise in the patient's medical care. Please read the chart carefully and recognize, using context, where these substitutions have occurred. Chief Complaint: ETOH Time Seen by MD: 22:13 Primary Care Provider: unknown Information Source: Patient, Relative (Mother) Mode of Arrival: Ambulatory Past Medical History PAST MEDICAL HISTORY: Denies Surgical History: Denies all surgeries Family History Family History: No family hx of Cancer, No family hx of Heart thad, Family hx of DM Social History Smoker: Non-Smoker Alcohol: Heavy Drugs: Marijuana Lives In: Home Was a procedure done? Was a procedure done?: No Psych Differential Dx OD Differential Dx: Alcohol Abuse, Anxiety, Depression Intoxication Differential Dx: Alcohol Withdraw Syndrome, Delerium Tremens, Hallucinations, Seizures, Anticholinergic Poisoning, CVA, Dehydration, Depressi on, Drug-Induced Psychosis, Electrolyte Imbalance, Encephalitis, Encephalopathy, Hepatitis, Hyperthermia, Intoxication, Medical Noncompliance, Personality Disorder, Schizophrenia, Seizure Disorder, Substance Abuse Disorder, Thiamine Deficiency, Thyrotoxicosis X-Ray, Labs, Meds, VS Vital Signs Date Time Temp Pulse Resp B/P (MAP) Pulse Ox O2 Delivery O2 Flow Rate FiO2 03/23/25 21:36 98.0 127 18 152/110 96 98.0 Lab Test 03/23/25 23:24 03/23/25 22:22 Range/Units Urine Opiates Screen Neg NEGATIVE Urine Fentanyl Screen Neg NEGATIVE Urine Barbiturates Screen Neg NEGATIVE Urine Phencyclidine Screen Neg NEGATIVE Urine Amphetamines Screen Neg NEGATIVE Urine Benzodiazepines Screen Neg NEGATIVE Urine Cocaine Screen Neg NEGATIVE Urine Cannabinoids Screen Neg NEGATIVE White Blood Count 5.7 4.4-10.8 10^3/uL Red Blood Count 5.17 4.5-5.90 10^6/uL Hemoglobin 16.2 13.5-17.5 g/dL Hematocrit 46.0 41.0-53.0 % Mean Corpuscular Volume 89.0 80.0-100.0 fL Mean Corpuscular Hemoglobin 31.3 28.0-32.0 pg Mean Corpuscular Hemoglobin Concent 35.2 32.0-36.0 g/dL Red Cell Distribution Width 13.7 11.8-14.3 % Platelet Count 102 L 140-450 10^3/uL Mean Platelet Volume 7.5 6.9-10.8 fL Neutrophils (%) (Auto) 65.7 37.0-80.0 % Lymphocytes (%) (Auto) 25.2 10.0-50.0 % Monocytes (%) (Auto) 6.0 0.0-12.0 % Eosinophils (%) (Auto) 2.1 0.0-7.0 % Basophils (%) (Auto) 1.0 0.0-2.0 % Neutrophils # (Auto) 3.8 1.6-8.6 10 ^3/uL Lymphocytes # (Auto) 1.4 0.4-5.4 10 ^3/uL Monocytes # (Auto) 0.3 0-1.3 10 ^3/uL Eosinophils # (Auto) 0.1 0-0.8 10 ^3/uL Basophils # (Auto) 0.1 0-0.2 10 ^3/uL Nucleated Red Blood Cells 0.1 % Sodium Level 144 136-145 mmol/L Potassium Level 4.3 3.5-5.1 mmol/L Chloride Level 103 98-107 mmol/L Carbon Dioxide Level 25 20-31 mmol/L Anion Gap 16 H 5-15 Blood Urea Nitrogen 9 9-23 mg/dL Creatinine 0.86 0.700-1.30 mg/dL Glomerular Filtration Rate Calc 110 >90 mL/min BUN/Creatinine Ratio 10.5 10.0-20.0 Serum Glucose 100 74-106 mg/dL Calcium Level 8.8 8.7-10.4 mg/dL Magnesium Level 2.3 1.6-2.6 mg/dL Total Bilirubin 1.0 0.2-1.0 mg/dL Aspartate Amino Transferase (AST) 97 H 13-40 U/L Alanine Aminotransferase (ALT) 56 H 7-40 U/L Alkaline Phosphatase 69 46-116 U/L Total Protein 7.8 5.7-8.2 g/dL Albumin 4.6 3.2-4.8 g/dL Plasma/Serum Blood Alcohol 435.9 *H <10 mg/dL Time of 1ST Reevaluation: 22:28 Reevaluation 1ST: Unchanged Patient Education/Counseling: Diagnosis, Treatment Family Education/Counseling: Diagnosis, Treatment Comments MDM: patient presented with the above HPI.---alcohol withdrawal---workup was initiated. patient was found with the above mentioned diagnosis. the following medications were ordered: please refer to order lists of meds and tests obtained by myself Dr. Burger. Patient ED course and VS have been stabilized. Patient has been reassessed in the ED and remained in a stable condition. Pertinent incidental findings were discussed with the patient and/or family. Patient/family voices understanding and is agreeable with plan. Patient has been observed in the ED adequate length of time to insure improvement/stability. Escalation of care considered: Consideration of escalation to observation or admission Patient was ADMITTED to the medicine team for further evaluation and treatment of their presentation. All the reports of any imaging studies that were ordered by myself were reviewed by myself. Departure 1 Departure Time of Disposition: 00:07 Impression: Primary Impression: Alcohol abuse Additional Impression: Alcohol withdrawal Disposition: ADMITTED INPATIENT Admit to: Tele Condition: Guarded Discharged With: Self Critical Care Note Critical Care Time?: Yes (35 min-critical care time only) I personally scribed for LAMONT BURGER DO ([email or web address]) on 03/23/25 at 22:28. Electronically submitted by Girma Villarreal ([facility]). I personally scribed for LAMONT BURGER DO ([email or web address]) on 03/23/25 at 22:31. Electronically submitted by Girma Villarreal ([facility]). LAMONT BURGER DO Mar 23, 2025 22:28
[2025-03-23 22:58] LABS: Hematocrit 46.0 % (41.0-53.0); Hemoglobin 16.2 g/dL (13.5-17.5); Mean Corpuscular Hemoglobin 31.3 pg (28.0-32.0); Mean Corpuscular Volume 89.0 fL (80.0-100.0); Nucleated Red Blood Cells % 0.1 %
[2025-03-23 23:12] LABS: Albumin 4.6 g/dL (3.2-4.8); Alkaline Phosphatase 69 U/L (46-116); Anion Gap 16 (5-15); BUN/Creatinine Ratio 10.5 (10.0-20.0); Bilirubin, Total 1.0 mg/dL (0.2-1.0); Blood Urea Nitrogen 9 mg/dL (9-23); Calcium 8.8 mg/dL (8.7-10.4); Carbon Dioxide 25 mmol/L (20-31); Chloride 103 mmol/L (98-107); Glucose 100 mg/dL (74-106); Magnesium 2.3 mg/dL (1.6-2.6); Potassium 4.3 mmol/L (3.5-5.1); Sodium 144 mmol/L (136-145); Total Protein 7.8 g/dL (5.7-8.2)
[2025-03-23 23:14] LABS: Alanine Aminotransferase 56 U/L (7-40)
[2025-03-23 23:42] LABS: Amphetamine Screen, Urine Neg (NEGATIVE); Barbiturate Scree,Urine Neg (NEGATIVE); Benzodiazephine Screen, Urine Neg (NEGATIVE); Cocaine Screen, Urine Neg (NEGATIVE)
[2025-03-23 23:43] LABS: Cannabinoid Screen, Urine Neg (NEGATIVE); Opiate Scree,Urine Neg (NEGATIVE); Phencyclidine Screen, Urine Neg (NEGATIVE)
[2025-03-24] VITALS (10 sets, daily range): BP systolic 144–172; BP diastolic 78–96; PULSE 82–105; RESP 14–20; TEMP 97.5–98.4; O2SAT 94–98
[2025-03-24] MEDS: LORazepam 2MG/ML-1ML VIAL IV ONE ×2 (01:15→02:17)
[2025-03-24] MEDS ORDERED: LORazepam 2MG/ML-1ML VIAL IV PRN (01:15)
[2025-03-24] MEDS ORDERED: ONDANSETRON HCL 4 MG/2 ML VIAL IV PRN (01:15)
--- NOTE | 2025-03-24 01:43 | DVHHPRES ---
History of Present Illness Resident Creating Document: CARMEN MARTEL History of Present Illness Patient is a 45-year-old male with past medical history of alcohol abuse, anxiety, and depression, presented to [facility] ED after binge drinking for the past 2 weeks. The patient states his last alcoholic drink was approximately 10 hours ago around 6:00 pm, though he is unsure of the exact amount consumed, describing it as a lot. He denies suicidal or homicidal ideation. The patient is accompanied by his mother and sister, and history is obtained from both. According to the mother, the patient has been binge drinking for the past few months, more than 100 bottles of Tequila. He also reported intermittent sharp chest pain for about 10 years. On evaluation in the ED, patient is afebrile, tachycardic and hypertensive (152/110 mmHg). Visible tremors are noted on exam, and he smells strongly of alcohol. Initial labs show significant serum alcohol 435.9, AST 97 and ALT 57. The patient was placed NPO, started on CIWA protocol and IV fluids. Patient is admitted for further evaluation and management. Past Medical History alcohol abuse, anxiety, depression Past Surgical History: None Family History: None Smoke: No ALCOHOL: heavy Drugs: Marijuana Lives: Alone Review of Systems Review of Systems Eyes: No Pain, No Vision change, No Conjunctivae inflammation, No Eyelid inflammation, No Other, Redness ENT: No Ear pain, No Ear discharge, No Nose pain, No Nose discharge, No Nose congestion, No Mouth pain, No Mouth swelling, No Throat pain, No Throat swelling, No Other Cardiovascular: Chest Pain, No Palpitations, No Orthopnea, No Paroxysmal No Dyspnea, No Edema, No Lt Headedness, No Other Respiratory: No Cough, No Dry, No Shortness of breath, No SOB with exertion, No Wheezing, No Hemoptysis, No Pleuritic Pain, No Sputum, No Other Gastrointestinal: Nausea, Vomiting, No Abdominal Pain, No Diarrhea, No Constipation, No Melena, No Hematochezia, No Other Genitourinary: No Dysuria, No Frequency, No Incontinence, No Hematuria, No Retention, No Other Musculoskeletal: No other, No neck pain, No shoulder pain, No arm pain, No back pain, No hand pain, No leg pain, No foot pain Skin: No Rash, No Lesions, No Jaundice, No Bruising, No Other Allergies: Coded Allergies: NO KNOWN ALLERGIES (Unverified , 07/30/20) Medications Current Medications Medications Dose Ordered Sig/Lexus Route Start Time Stop Time Status Last Admin Dose Admin Ondansetron HCl 4 mg Q4HP PRN IV 03/24/25 01:15 UNV Thiamine HCl 100 mg DAILY IV 03/24/25 10:00 UNV Lorazepam 2 mg Q2H PRN IV 03/24/25 01:15 UNV Exam Vital Signs Vital Signs Date Time Temp Pulse Resp B/P (MAP) Pulse Ox O2 Delivery O2 Flow Rate FiO2 03/24/25 01:17 98.0 105 20 156/93 (114) 96 98.0 Exam General Appearance: Cooperative. Well developed. Well nourished. NAD. Conjunctival injection bilaterally Head Exam: Normal inspection Neck Exam: Normal inspection. Non-tender. Normal alignment Pulmonary/Respiratory: Chest non-tender. Clear bilateral breath sounds, no crackles, no wheezing. Cardiovascular/Chest: Regular rate and rhythm. No murmurs. No JVD. Peripheral Pulses: 2+ Radial (R). 2+ Radial (L). 2+ Pedal (R). 2+ Pedal (L) Abdominal Exam: Normal bowel sounds. Soft. normal abdomen, no visible veins, Nontender. No hepatospenomegaly. No masses Ankle Exam: Negative ankle edema Lower extremities: Negative lower extremity edema Neuro/Mental Status: A&O x4. Coherent. Bilateral upper extremity tremors noted at rest. Thoughts/Psych: Normal thought pattern. Appropriate mood and affect. Good judgement and insight Skin Exam: Normal inspection. Normal color. Warm. Dry Labs/Xrays Labs Test 03/23/25 23:24 03/23/25 22:22 Range/Units Urine Opiates Screen Neg NEGATIVE Urine Fentanyl Screen Neg NEGATIVE Urine Barbiturates Screen Neg NEGATIVE Urine Phencyclidine Screen Neg NEGATIVE Urine Amphetamines Screen Neg NEGATIVE Urine Benzodiazepines Screen Neg NEGATIVE Urine Cocaine Screen Neg NEGATIVE Urine Cannabinoids Screen Neg NEGATIVE White Blood Count 5.7 4.4-10.8 10^3/uL Red Blood Count 5.17 4.5-5.90 10^6/uL Hemoglobin 16.2 13.5-17.5 g/dL Hematocrit 46.0 41.0-53.0 % Mean Corpuscular Volume 89.0 80.0-100.0 fL Mean Corpuscular Hemoglobin 31.3 28.0-32.0 pg Mean Corpuscular Hemoglobin Concent 35.2 32.0-36.0 g/dL Red Cell Distribution Width 13.7 11.8-14.3 % Platelet Count 102 L 140-450 10^3/uL Mean Platelet Volume 7.5 6.9-10.8 fL Neutrophils (%) (Auto) 65.7 37.0-80.0 % Lymphocytes (%) (Auto) 25.2 10.0-50.0 % Monocytes (%) (Auto) 6.0 0.0-12.0 % Eosinophils (%) (Auto) 2.1 0.0-7.0 % Basophils (%) (Auto) 1.0 0.0-2.0 % Neutrophils # (Auto) 3.8 1.6-8.6 10 ^3/uL Lymphocytes # (Auto) 1.4 0.4-5.4 10 ^3/uL Monocytes # (Auto) 0.3 0-1.3 10 ^3/uL Eosinophils # (Auto) 0.1 0-0.8 10 ^3/uL Basophils # (Auto) 0.1 0-0.2 10 ^3/uL Nucleated Red Blood Cells 0.1 % Sodium Level 144 136-145 mmol/L Potassium Level 4.3 3.5-5.1 mmol/L Chloride Level 103 98-107 mmol/L Carbon Dioxide Level 25 20-31 mmol/L Anion Gap 16 H 5-15 Blood Urea Nitrogen 9 9-23 mg/dL Creatinine 0.86 0.700-1.30 mg/dL Glomerular Filtration Rate Calc 110 >90 mL/min BUN/Creatinine Ratio 10.5 10.0-20.0 Serum Glucose 100 74-106 mg/dL Calcium Level 8.8 8.7-10.4 mg/dL Magnesium Level 2.3 1.6-2.6 mg/dL Total Bilirubin 1.0 0.2-1.0 mg/dL Aspartate Amino Transferase (AST) 97 H 13-40 U/L Alanine Aminotransferase (ALT) 56 H 7-40 U/L Alkaline Phosphatase 69 46-116 U/L Total Protein 7.8 5.7-8.2 g/dL Albumin 4.6 3.2-4.8 g/dL Plasma/Serum Blood Alcohol 435.9 *H <10 mg/dL SEPSIS Sepsis Screen Date sepsis recognized/suspect: Mar 23, 2025 Time Sepsis recognized/suspect: 2141 Recent Procedure: No On Antibiotic Therapy: No Respiratory Rate >20: No Heart Rate >90: Yes Temp<36 C (96.8 F) or >38.3 C: No SBP <90 or MAP <65 mmHG: No New Acute Mental Status Change: No Is the patient on CPAP, BIPAP,: No Physician Orders [employer] (03/23/25 ) Electrocardigram (03/23/25 22:15) Admit (03/24/25 01:08) Allergies (03/24/25:08) Code Status (03/24/25:08) Ondansetron Hcl (Zofran) (03/24/25:15) Complete Blood Count (03/24/25 04:00) Comprehensive Metabolic Panel (03/24/25 04:00) Npo (Nothing By Mouth) Diet (03/24/25 Breakfast) Condition: Fair (03/24/25 01:08) Stat Ekg For Chest Pain (03/24/25 01:08) Notify Md Of Changes From Base (03/24/25 01:08) Covered Button Maker For 24 Hours (03/24/25 01:08) Emergency Dysrhythmia Protocol (03/24/25:08) Rhythm Strips Once Every Shift (03/24/25 01:08) Sodium Chloride 0.9% (03/24/25:15) Sodium Chloride 0.9% (03/24/25:15) Urinalysis (03/24/25 01:08) Drug Screen (03/24/25 01:08) Lactic Acid W/ Reflex Order (03/24/25 01:08) Thiamine Inj (03/24/25 10:00) Lorazepam 2mg/Ml Inj (Ativan Inj) (03/24/25 01:15) Etoh Withdrawal Assessment (03/24/25 01:08) Etoh Withdrawal Assessment NOW (03/24/25 01:08) Chest Xray 1 View (03/24/25 01:08) Lorazepam 2mg/Ml Inj (Ativan Inj) (03/24/25 01:15) LIVER (03/24/25 01:08) Vital Signs Date Time Temp Pulse Resp B/P (MAP) Pulse Ox O2 Delivery O2 Flow Rate FiO2 03/24/25 01:17 98.0 105 20 156/93 (114) 96 98.0 03/23/25 21:36 98.0 127 18 152/110 96 98.0 Laboratory Tests Test 03/23/25 22:22 White Blood Count 5.7 10^3/uL (4.4-10.8) Assessment/Plan Assessment/Plan Alcohol intoxication Alcohol withdrawal Possible alcoholic ketoacidosis Intractable non-cardiac chest pain due to above We will continue to monitor the patient in the [facility] until the CIWA score is below 20. Serum alcohol: 435.9 CIWA score: 23 > 24 Lactic acid 4.8 > 4.8 Anion gap: 16 IV NS 1,000 MLS/HR one IV NS 125 MLS/HR one Ativan 2MG IV q2h prn Ativan 1 MG IV once Zofran 4 MG IV q4h prn Thiamine 100 MG IV daily UA and UDS Chest X-ray: No evidence of acute cardiopulmonary disease. Transaminitis Hepatic steatosis AST 97, ALT 56 Liver US: No sonographic evidence of gallstones or acute cholecystitis. Hepatic steatosis. Thrombocytopenia Platelet 102 > 84 monitor Diet: NPO Goals of care: Full code, discussed for >30 minutes on 03/24/25 Plan discussed with patient Plan discussed with Dr. Mcclure Plan discussed with: Patient, Other (Mother, sister) My Orders Orders - CARMEN MATREL RESIDENT Procedure Category Date Status Time Admit ADMIT 03/24/25 Transmitted 01:08 Allergies [facility] 03/24/25 In Process 01:08 Code Status CODE 03/24/25 Transmitted 01:08 Ondansetron Hcl PHA 03/24/25 Logged (Zofran) 01:15 Complete Blood Count LAB 03/24/25 Logged 04:00 Comprehensive LAB 03/24/25 Logged Metabolic Panel 04:00 Npo (Nothing By DIET 03/24/25 Transmitted Mouth) Diet Breakfast Condition: Fair [facility] 03/24/25 In Process 01:08 Stat Ekg For Chest [facility] 03/24/25 In Process Pain 01:08 Notify Of Changes [facility] 03/24/25 In Process From Base 01:08 Covered Button Maker For [facility] 03/24/25 In Process 24 Hours 01:08 Emergency Dysrhythmia [facility] 03/24/25 In Process Protocol 01:08 Rhythm Strips Once [facility] 03/24/25 In Process Every Shift 01:08 Sodium Chloride 0.9% PHA 03/24/25 Logged 01:15 Sodium Chloride 0.9% PHA 03/24/25 Logged 01:15 Urinalysis LAB 03/24/25 Logged 01:08 Drug Screen LAB 03/24/25 Logged 01:08 Lactic Acid W/ Reflex LAB 03/24/25 Logged Order 01:08 Thiamine Inj PHA 03/24/25 Logged 10:00 Lorazepam 2mg/Ml Inj PHA 03/24/25 Logged (Ativan Inj) 01:15 Etoh Withdrawal [facility] 03/24/25 In Process Assessment 01:08 Etoh Withdrawal [facility] 03/24/25 In Process Assessment 01:08 Chest Xray 1 View XY 03/24/25 Logged 01:08 Lorazepam 2mg/Ml Inj PHA 03/24/25 Logged (Ativan Inj) 01:15 LIVER US 03/24/25 Logged 01:08 Date of Service: Mar 24, 2025 Billing Provider: JONNATHAN MCCLURE MD Common Visit Codes: [id number] INP/OBS CARE (HIGH) Secondary Visit Codes: [id number] CARE PLAN 30 MINUTES CARMEN MARTEL RESIDENT Mar 24, 2025 01:43
--- NOTE | 2025-03-24 02:04 | DVH ---
CHEST RADIOGRAPH Indication: chest pain Technique: Single frontal view of the chest was obtained COMPARISON: XY CHEST PORTABLE on DOS: 01/07/24, XY CHEST PORTABLE on DOS: 01/07/24, XY CHEST XRAY 1 VIEW on DOS: 09/13/22 FINDINGS: Lines and Tubes: None Lungs: No evidence of focal consolidation. Left costophrenic sulcus excluded. Pleura: No effusion. No pneumothorax. Cardiomediastinal contours: Unremarkable Bones: Unremarkable IMPRESSION: 1. No evidence of acute cardiopulmonary disease.
[2025-03-24] MEDS: SODIUM CHLORIDE 0.9% 1,000 ML IV ONE ×4 (02:10→03:22)
--- NOTE | 2025-03-24 02:13 | DVH ---
INDICATION: transaminitis TECHNIQUE: Multiple real-time sonographic images were obtained of the right upper quadrant. COMPARISON: US ABDOMEN LIMITED on DOS: 01/08/24 FINDINGS: The liver demonstrates diffusely increased echotexture without focal mass lesions. The liver measures 15.8 cm. Normal hepatopetal portal venous flow identified. No evidence of pleural effusion or abdominal ascites. There is no intrahepatic or extrahepatic ductal dilatation. The common duct measures 0.4 cm. The gallbladder is without evidence of stone or sludge. The gallbladder wall measures 0.2 cm and is within normal limits. Negative sonographic morris's sign. The right kidney measures 10.6 cm. The right kidney is normal in contour, size, and shape. The echogenicity is normal. There is no hydronephrosis. The pancreas is not well visualized due to overlying bowel gas. IMPRESSION: 1. No sonographic evidence of gallstones or acute cholecystitis. 2. Hepatic steatosis.
[2025-03-24] MEDS: THIAMINE HCL 100 MG TAB PO ONE (02:17)
[2025-03-24 02:46] LABS: Lactic Acid w/Reflex 4.8 mmol/L (0.4-2.0)
[2025-03-24 04:54] LABS: Hematocrit 40.6 % (41.0-53.0); Hemoglobin 13.9 g/dL (13.5-17.5); Mean Corpuscular Hemoglobin 31.1 pg (28.0-32.0); Mean Corpuscular Volume 90.7 fL (80.0-100.0); Nucleated Red Blood Cells % 0.1 %
[2025-03-24 05:11] LABS: Albumin 4.0 g/dL (3.2-4.8); Alkaline Phosphatase 58 U/L (46-116); Anion Gap 14 (5-15); BUN/Creatinine Ratio 9.0 (10.0-20.0); Carbon Dioxide 22 mmol/L (20-31); Chloride 103 mmol/L (98-107); Potassium 4.2 mmol/L (3.5-5.1); Sodium 139 mmol/L (136-145); Total Protein 6.7 g/dL (5.7-8.2)
[2025-03-24 05:12] LABS: Bilirubin, Total 1.0 mg/dL (0.2-1.0)
[2025-03-24 05:18] LABS: Alanine Aminotransferase 48 U/L (7-40); Blood Urea Nitrogen 7 mg/dL (9-23); Calcium 8.2 mg/dL (8.7-10.4); Glucose 132 mg/dL (74-106)
[2025-03-24] MEDS: SODIUM CHLORIDE 0.9% 500 ML IV ONE (05:30)
[2025-03-24 08:10] LABS: Urine Protein, UAD Negative (Negative)
[2025-03-24 08:22] LABS: Amphetamine Screen, Urine Neg (NEGATIVE); Barbiturate Scree,Urine Neg (NEGATIVE); Benzodiazephine Screen, Urine Neg (NEGATIVE); Cannabinoid Screen, Urine Neg (NEGATIVE); Cocaine Screen, Urine Neg (NEGATIVE); Opiate Scree,Urine Neg (NEGATIVE); Phencyclidine Screen, Urine Neg (NEGATIVE)
[2025-03-24] MEDS: THIAMINE 100mg/ml INJ (200mg/2ml VIAL) IV SCH (10:00)
[2025-03-24] MEDS: LORazepam 2MG/ML-1ML VIAL IV PRN (12:43)
[2025-03-24] MEDS: FOLIC ACID 1 MG TAB PO SCH (16:02)
[2025-03-24] MEDS: D5W/SOD CHL 0.45% 1,000 ML IV SCH (16:03)
--- NOTE | 2025-03-24 17:27 | DVHPN2 ---
Reviewed: H&P Changes from previous H/P or p: No Changes General: Per HPI Objective Vitals Vital Signs Date Time Temp Pulse Resp B/P (MAP) Pulse Ox O2 Delivery O2 Flow Rate FiO2 03/24/25 16:30 98.4 87 19 149/96 (113) 96 98.4 03/24/25 07:30 Room Air* 0 21 Intake/Output Intake and Output 03/24/25 07:00 Intake Total 500 ml Balance 500 ml IV Total 500 ml Exam General Appearance: Cooperative. Well developed. Well nourished. NAD. C onjunctival injection bilaterally Head Exam: Normal inspection Neck Exam: Normal inspection. Non-tender. Normal alignment Pulmonary/Respiratory: Chest non-tender. Clear bilateral breath sounds, no crackles, no wheezing. Cardiovascular/Chest: Regular rate and rhythm. No murmurs. No JVD. Peripheral Pulses: 2+ Radial (R). 2+ Radial (L). 2+ Pedal (R). 2+ Pedal (L) Abdominal Exam: Normal bowel sounds. Soft. normal abdomen, no visible veins, Nontender. No hepatospenomegaly. No masses Ankle Exam: Negative ankle edema Lower extremities: Negative lower extremity edema Neuro/Mental Status: A&O x4. Coherent. Bilateral upper extremity tremors noted at rest. Thoughts/Psych: Normal thought pattern. Appropriate mood and affect. Good judgement and insight Skin Exam: Normal inspection. Normal color. Warm. Dry Medications Current Medications Medications Dose Ordered Sig/Lexus Route Start Time Stop Time Status Last Admin Dose Admin Ondansetron HCl 4 mg Q4HP PRN IV 03/24/25 01:15 Thiamine HCl 100 mg DAILY IV 03/24/25 10:00 Lorazepam 1 mg Q2HPRN PRN IV 03/24/25 04:45 03/24/25 12:43 1 MG Dextrose/Sodium Chloride 1,000 ml @ 75 mls/hr [id number] IV 03/24/25 14:45 03/24/25 16:03 75 MLS/HR Folic Acid 1 mg DAILY PO 03/24/25 15:00 Laboratory Results Laboratory Tests 03/24/25 04:34 Chemistry Test 03/23/25 22:22 03/24/25 04:34 Albumin 4.6 g/dL (3.2-4.8) 4.0 g/dL (3.2-4.8) Calcium Level 8.8 mg/dL (8.7-10.4) 8.2 mg/dL (8.7-10.4) L Magnesium Level 2.3 mg/dL (1.6-2.6) Total Protein 7.8 g/dL (5.7-8.2) 6.7 g/dL (5.7-8.2) LFT Test 03/23/25 22:22 03/24/25 04:34 Alanine Aminotransferase (ALT) 56 U/L (7-40) H 48 U/L (7-40) H Alkaline Phosphatase 69 U/L (46-116) 58 U/L (46-116) Aspartate Amino Transferase (AST) 97 U/L (13-40) H 81 U/L (13-40) H Total Bilirubin 1.0 mg/dL (0.2-1.0) 1.0 mg/dL (0.2-1.0) Urinalysis Test 03/24/25 07:47 Urine Color Light-yellow (Yellow) Urine Clarity Clear (Clear) Urine pH 5.0 (5.0-9.0) Urine Specific [place] 1.007 (1.001-1.035) Urine Protein Negative (Negative) Urine Ketones Negative (Negative) Urine Blood 1+ /uL (Negative) H Urine Nitrite Negative (Negative) Urine Bilirubin Negative (Negative) Urine Urobilinogen Normal mg/dL (Negative) Urine Leukocyte Esterase Negative /uL (Negative) Urine RBC None seen /hpf (0 - 3) Urine Microscopic WBC < 1 /HPF (0-3) Urine Squamous Epithelial Cells None seen /hpf (<5) Urine Bacteria None seen /hpf (None Seen) Urine Glucose Normal mg/dL (Normal) Labs and/or images reviewed: Labs reviewed by me, Image(s) reviewed by me Assessment/Plan Assessment/Plan 03/24: Patient feeling for recurrent alcohol relapse, labs consistent with cirrhosis. Patient's CIWA score continues to be elevated, but this might be his new baseline. Patient is alert and oriented, has resting tremor and intention tremors. We will continue to monitor 24 hours to make sure seizure and withdrawal free. Diagnosis: Alcohol intoxication, with poisoning Alcohol withdrawal Alcoholic ketoacidosis Cirrhosis Thrombocytopenia due to cirrhosis Lactic acidosis due to cirrhosis Anion gap acidosis due to above Transaminitis, alcohol hepatitis Hepatic steatosis due to chronic alcohol abuse, IV NS 1,000 MLS/HR one IV NS 125 MLS/HR one Ativan 2MG IV q2h prn Ativan 1 MG IV once Zofran 4 MG IV q4h prn Thiamine 100 MG IV daily UA and UDS Chest X-ray: No evidence of acute cardiopulmonary disease. Liver US: No sonographic evidence of gallstones or acute cholecystitis. Hepatic steatosis. monitor platelet Diet: NPO Tele Full code Plan discussed with: Patient My Orders Orders - AKILA CLOUD MD Procedure Category Date Status Time Clear Liq Diet DIET 03/24/25 Transmitted Dinner D5w/Sod Chl 0.45% PHA 03/24/25 In Process (D5w 1/2ns) 14:45 Folic Acid Tablet PHA 03/24/25 In Process 15:00 Date of Service: Mar 24, 2025 Billing Provider: AKILA CLOUD MD Common Visit Codes: [id number] INP/OBS CARE(HIGH) AKILA CLOUD MD Mar 24, 2025 17:27
[2025-03-25 01:00] VITALS: BP 164/91; PULSE 84; RESP 18; TEMP 98.2; O2SAT 98
[2025-03-25 05:00] VITALS: BP 166/91; PULSE 73; RESP 18; TEMP 98.2; O2SAT 97
[2025-03-25 08:00] VITALS: PULSE 78; RESP 14
[2025-03-25 08:42] VITALS: BP 151/110; PULSE 85; RESP 16; TEMP 98.2; O2SAT 98
[2025-03-25 08:56] LABS: Albumin 3.6 g/dL (3.2-4.8); Alkaline Phosphatase 54 U/L (46-116); Anion Gap 11 (5-15); BUN/Creatinine Ratio 9.6 (10.0-20.0); Carbon Dioxide 26 mmol/L (20-31); Chloride 102 mmol/L (98-107); Glucose 89 mg/dL (74-106); Potassium 3.5 mmol/L (3.5-5.1); Sodium 139 mmol/L (136-145); Total Protein 6.2 g/dL (5.7-8.2)
[2025-03-25 08:57] LABS: Alanine Aminotransferase 41 U/L (7-40); Bilirubin, Total 1.8 mg/dL (0.2-1.0); Blood Urea Nitrogen 7 mg/dL (9-23); Calcium 8.5 mg/dL (8.7-10.4)
--- NOTE | 2025-03-25 10:52 | DVHDS2 ---
Discharge Summary Date of Admission Mar 24, 2025 at 01:08 Date of Discharge: Mar 25, 2025 Labs/Diagnostic Data: Laboratory Results Test 03/25/25 05:53 03/24/25 07:47 03/24/25 04:34 03/23/25 22:22 Sodium Level 139 mmol/L (136-145) Potassium Level 3.5 mmol/L (3.5-5.1) Chloride Level 102 mmol/L (98-107) Carbon Dioxide Level 26 mmol/L (20-31) Anion Gap 11 (5-15) Blood Urea Nitrogen 7 mg/dL (9-23) Creatinine 0.73 mg/dL (0.700-1.30) Glomerular Filtration Rate Calc 116 mL/min (>90) BUN/Creatinine Ratio 9.6 (10.0-20.0) Serum Glucose 89 mg/dL (74-106) Calcium Level 8.5 mg/dL (8.7-10.4) Total Bilirubin 1.8 mg/dL (0.2-1.0) Aspartate Amino Transferase (AST) 67 U/L (13-40) Alanine Aminotransferase (ALT) 41 U/L (7-40) Alkaline Phosphatase 54 U/L (46-116) Total Protein 6.2 g/dL (5.7-8.2) Albumin 3.6 g/dL (3.2-4.8) Urine Color Light-yellow (Yellow) Urine Clarity Clear (Clear) Urine pH 5.0 (5.0-9.0) Urine Specific [place] 1.007 (1.001-1.035) Urine Protein Negative (Negative) Urine Ketones Negative (Negative) Urine Blood 1+ /uL (Negative) Urine Nitrite Negative (Negative) Urine Bilirubin Negative (Negative) Urine Urobilinogen Normal mg/dL (Negative) Urine Leukocyte Esterase Negative /uL (Negative) Urine RBC None seen /hpf (0 - 3) Urine Microscopic WBC < 1 /HPF (0-3) Urine Squamous Epithelial Cells None seen /hpf (<5) Urine Bacteria None seen /hpf (None Seen) Urine Glucose Normal mg/dL (Normal) Urine Opiates Screen Neg (NEGATIVE) Urine Fentanyl Screen Neg (NEGATIVE) Urine Barbiturates Screen Neg (NEGATIVE) Urine Phencyclidine Screen Neg (NEGATIVE) Urine Amphetamines Screen Neg (NEGATIVE) Urine Benzodiazepines Screen Neg (NEGATIVE) Urine Cocaine Screen Neg (NEGATIVE) Urine Cannabinoids Screen Neg (NEGATIVE) White Blood Count 6.7 10^3/uL (4.4-10.8) Red Blood Count 4.47 10^6/uL (4.5-5.90) Hemoglobin 13.9 g/dL (13.5-17.5) Hematocrit 40.6 % (41.0-53.0) Mean Corpuscular Volume 90.7 fL (80.0-100.0) Mean Corpuscular Hemoglobin 31.1 pg (28.0-32.0) Mean Corpuscular Hemoglobin Concent 34.3 g/dL (32.0-36.0) Red Cell Distribution Width 13.3 % (11.8-14.3) Platelet Count 84 10^3/uL (140-450) Mean Platelet Volume 7.5 fL (6.9-10.8) Neutrophils (%) (Auto) 76.4 % (37.0-80.0) Lymphocytes (%) (Auto) 16.3 % (10.0-50.0) Monocytes (%) (Auto) 5.8 % (0.0-12.0) Eosinophils (%) (Auto) 0.6 % (0.0-7.0) Basophils (%) (Auto) 0.9 % (0.0-2.0) Neutrophils # (Auto) 5.1 10 ^3/uL (1.6-8.6) Lymphocytes # (Auto) 1.1 10 ^3/uL (0.4-5.4) Monocytes # (Auto) 0.4 10 ^3/uL (0-1.3) Eosinophils # (Auto) 0 10 ^3/uL (0-0.8) Basophils # (Auto) 0.1 10 ^3/uL (0-0.2) Nucleated Red Blood Cells 0.1 % Lactic Acid Level 4.8 mmol/L (0.4-2.0) Magnesium Level 2.3 mg/dL (1.6-2.6) Plasma/Serum Blood Alcohol 435.9 mg/dL (<10) Other Laboratory Tests 03/25/25 05:53 03/24/25 04:34 Brief Hx & Hospital Course: 45-year-old male with past medical history of alcohol abuse, anxiety, and depression, presented to [facility] ED after binge drinking for the past 2 weeks. The patient states his last alcoholic drink was approximately 10 hours ago around 6:00 pm, though he is unsure of the exact amount consumed, describing it as a lot. He denies suicidal or homicidal ideation. The patient is accompanied by his mother and sister, and history is obtained from both. According to the mother, the patient has been binge drinking for the past few months, more than 100 bottles of Tequila. He also reported intermittent sharp chest pain for about 10 years. On evaluation in the ED, patient is afebrile, tachycardic and hypertensive (152/110 mmHg). Visible tremors are noted on exam, and he smells strongly of alcohol. Initial labs show significant serum alcohol 435.9, AST 97 and ALT 57. The patient was placed NPO, started on CIWA protocol and IV fluids. Patient is admitted for further evaluation and management. 03/24: Patient feeling for recurrent alcohol relapse, labs consistent with cirrhosis. Patient's CIWA score continues to be elevated, but this might be his new baseline. Patient is alert and oriented, has resting tremor and intention tremors. We will continue to monitor 24 hours to make sure seizure and withdrawal free. 03/25: Patient has lactic acidosis, T bili rising, these are all sequelae of his alcohol binge with poisoning levels. He has no further tremors A&O x4 vital signs stable. Patient is stable for discharge after patient receives alcohol addiction package and when vitals available and ready. Otherwise continue to take low-salt diet, avoid alcohol, avoid Tylenol, no excessive supplements. Continue taking other home medications. Follow up with PCP to review discharge and to repeat complete blood work Diagnosis: Alcohol intoxication, with poisoning Alcohol withdrawal Alcoholic ketoacidosis Cirrhosis Thrombocytopenia due to cirrhosis Lactic acidosis due to cirrhosis Anion gap acidosis due to above Transaminitis, alcohol hepatitis Hepatic steatosis due to chronic alcohol abuse, Plan: -Alcohol addiction package given to patient -Take daily thiamine 100 mg oral for 30 days , 0TC -Take folic 1 mg daily for 30 days , OTC - low-salt diet, avoid alcohol, avoid Tylenol, no excessive supplements. - Continue taking other home medications. -Follow up with PCP to review discharge and to Condition at Discharge: Fair Final Diagnosis/Problems List Alcohol intoxication, with poisoning Alcohol withdrawal Alcoholic ketoacidosis Cirrhosis Thrombocytopenia due to cirrhosis Lactic acidosis due to cirrhosis Anion gap acidosis due to above Transaminitis, alcohol hepatitis Hepatic steatosis due to chronic alcohol abuse, Discharge Disposition: Home Discharge Instruct/Medications Scheduled Ascorbic Acid (Gnp Vitamin C W/Shawna Hips), 1,000 MG PO DAILY Bupropion Hcl (Bupropion Hcl Xl), 1 TAB PO DAILY, (Reported) Cholecalciferol (Vitamin D3 Super Strength), 4,000 UNIT PO DAILY Pantoprazole Sodium Sesquihydr (Pantoprazole Sodium), 40 MG PO DAILY@0600 Zinc Sulfate (Zinc-220), 220 MG PO DAILY Discharge Statement: "Patient was advised to return to the ER or call 911 if any headaches, dizziness, shortness of breath, chest pain, abdominal pain, bleeding, fevers, or worsening of medical condition. Patient was counseled about treatment plan, medications, possible side effects, patientverbalized understanding. All questions were answered to the best of my ability. This discharge took greater then 30 minutes in planning, reviewing documentation, counseling the patient, and discussing with other team members." ASSESSMENT ASSESSMENT Assessment Date of Service: Mar 25, 2025 Billing Provider: AKILA CLOUD MD Common Visit Codes: 88778-AVW/OBS DISCH DAY >30min AKILA CLOUD MD Mar 25, 2025 10:52
[2025-03-25 13:00] VITALS: BP 161/107; PULSE 76; RESP 16; TEMP 98; O2SAT 98
[2025-03-25] MEDS ORDERED: FOLI-119 PO (13:22)
[2025-03-25] MEDS ORDERED: THIA100T10 PO (13:22)
[2025-03-25 14:17] VITALS: TEMP 36.7
== END 2025-03-25 14:30 | disposition left against medical advice (07) | DRG 433 ==
LOC: ER 21:33 → OVERFLOW 03-24 01:08 → TELE-WESTW 03-24 16:40
PROVIDERS: ADMIT Student in an Organized Health Care Education/Training Program; ATTEND Student in an Organized Health Care Education/Training Program
DX: K70.10 Alcoholic hepatitis without ascites (principal); E87.29 Other acidosis; K74.60 Unspecified cirrhosis of liver; D69.59 Other secondary thrombocytopenia; F10.239 Alcohol dependence with withdrawal, unspecified; F32.A Depression, unspecified; Z53.29 Procedure and treatment not carried out because of patient's decision for other reasons; F10.229 Alcohol dependence with intoxication, unspecified; F41.9 Anxiety disorder, unspecified; K76.0 Fatty (change of) liver, not elsewhere classified; T51.91XA Toxic effect of unspecified alcohol, accidental (unintentional), initial encounter; G25.2 Other specified forms of tremor; Z79.899 Other long term (current) drug therapy; Y92.89 Other specified places as the place of occurrence of the external cause; Y90.8 Blood alcohol level of 240 mg/100 ml or more
CPT/HCPCS: 36415; 71045; 76705; 80053; 80307; 80320; 81001; 83605; 83735; 85025; 99291; G0378